=== PATIENT | female | born 1975 | race Caucasian/White ===

== ENCOUNTER 2018-05-25 21:21 | Observation (INO) | payer OTHER ==
[~2018-05-25] VITALS: Ht 167.6 cm; Wt 103.7 kg
--- NOTE | 2018-05-25 21:34 | NUR ---
PT IMMEIDATELY TO ROOM 14. PLACED ON COMPLIANCE TESTING ANALYST. SHOWS SR. COLLINS AT BEDSIDE
[2018-05-25] MEDS ORDERED: METFORMIN500 M1 PO (21:45)
[2018-05-25] MEDS ORDERED: ASPIRIN 81 LOW81 MG PO (21:46)
[2018-05-25] MEDS ORDERED: LOPRESSOR 550 MG/TAB PO (21:46)
[2018-05-25] MEDS ORDERED: AMLODIPINE5 MG PO (21:47)
[2018-05-25] MEDS ORDERED: PRAVASTATIN SOD10 MG PO (21:47)
--- NOTE | 2018-05-25 22:03 | NUR ---
MEDICATED FOR NAUSEA AND CP.
[2018-05-25 22:06] LABS: HEMATOCRIT 41.7 % (37.0-47.0); HEMOGLOBIN 13.9 g/dl (12.0-16.0); IMMATURE GRANULOCYTES 0.4 % (0.0-5.0); MEAN CELL VOLUME 89.3 fL CALC (80.0-100.0); MEAN CORPUSCULAR HGB 29.8 pG CALC (26.0-32.0); MEAN CORPUSCULAR HGB CONC 33.3 g/L CALC (32.0-36.0); NEUT# 7.43 thou/uL (2.00-7.15); RED BLOOD COUNT 4.67 mill/uL (4.20-5.60); RED CELL DISTRI WIDTH 12.3 % (11.5-15.5)
[2018-05-25 22:19] LABS: ALBUMIN 4.8 g/dL (3.2-5.0); ALKALINE PHOSPHATASE 102 u/l (38-126); AMYLASE 38 u/l (30-110); ANION GAP 20 (6-22 (CALC)); BILIRUBIN, TOTAL 0.5 mg/dL (0.0-1.4); BUN 13 mg/dL (7-17); BUN/CREATININE RATIO 20 (12-20 (CALC)); CARBON DIOXIDE 27 mmol/l (22-30); CHLORIDE 101 mmol/l (95-108); CREATININE 0.7 mg/dL (0.5-1.0); GFR > 60 ML/MIN (>=60 (CALC)); GFR FOR AFR.AMER. > 60 ML/MIN (>=60 (CALC)); LIPASE 59 u/l (23-300); POTASSIUM 4.2 mmol/l (3.5-5.1); SGPT/ALT 88 u/l (9-52); SODIUM 143 mmol/l (137-146); TOTAL PROTEIN 8.6 g/dL (6.3-8.2)
[2018-05-25 22:20] LABS: SGOT/AST 134 u/l (14-36)
[2018-05-25 22:30] LABS: MYOGLOBIN 24 ng/mL (0 - 62)
--- NOTE | 2018-05-25 23:07 | NUR ---
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
[2018-05-25 23:20] VITALS: BP 128/78
--- NOTE | 2018-05-26 | NUR ---
PATIENT ADMITTED FROM ER VIA STRETCHER WITH ER STAFF IN ATTENDANCE. PATIENT MIN ASSIST FROM STRETCHER TO STANDING SCALE TO BED. PATIENT DENIES ANY PAIN AT THIS TIME. PATIENT ALERT AND ORIENTEDX3. ALLERGY TO FOX INHIBITORS. HX OF HTN AND NIDDM. STATES THAT SHE STARTED WITH CHEST PRESSURE EARLIER TODAY AND THEN BECAME NAUSEATED LATER TONIGHT. DROVE HERSELF TO THE ER. SSTATES THAT SHE HAS BEEN UNDER ALOT OF STRESS RECENTLY. SALINE LOCK INTACT TO THE RIGHT AC-FLUSHES WELL WITH GOOD BLOOD RETURN. TELE MONITORING DEVICE IN PLACE. STATES THAT SHE HAD BM THURSDAY AND DENIES ANY DIFFICULTY WITH URINATION. LUNGS ARE CLEAR. ABD IS SOFT WITH BS+. SMALL PATCHES OF NON-DRAINING WOUNDS TO BLE-STATES THAT SHE HAS PSORISIS. TEDS APPLIED. PROVIDED WITH DIET GINGERALE. ORIENTED TO ROOM AND SURROUNDINGS. INSTRUCTED ON USE OF NURSE CALL LIGHT SYSTEM AND TV REMOTE. CALL LIGHT IN REACH. WILL CONT TO MONITOR.
--- NOTE | 2018-05-26 04:42 | NUR ---
APPEARS SLEEPING AT THIS TIME POSITIONED ON LEFT SIDE. CALL LIGHT IN REACH. WILL CONT TO MONITOR.
[2018-05-26 05:08] VITALS: BP 122/77
--- NOTE | 2018-05-26 07:05 | NUR ---
PT REPORT RECIEVED FROM DALE HEREDIA. PT RESTING IN BED. PT STATES MINIMAL PAIN TO LOWER CHEST RADIATING TO BACK THAT IS DECREASING. NO S/S OF DISTRESS NOTED. PT UP TO RESTROOM. CALL LIGHT IN REACH. WILL CONTINUE TO MONITOR.
[2018-05-26 08:04] VITALS: BP 141/86
--- NOTE | 2018-05-26 08:04 | NUR ---
PT ASSESSMENT COMPLETE. PT A/O X3. SPEECH IS CLEAR. RESP EVEN AND UNLABORED. LUNG SOUNDS CLEAR. LAST BM 05/25/18. ABD ROUND, SOFT. BOWEL SOUNDS ACTIVE X4. STRONG RADIAL AND PEDAL PULSES. #20 RAC, SITE APPEAR HEALTHY. TELE IN PLACE. PT STATES A HEADACHE 7 OUT OF 10. RELAXTION TECHNIQUES ENFORCED. PLAN OF CARE DISCUSSED. PT STATES UNDERSTANDING. SAFETY PRECAUTIONS IN PLACE. CALL LIGHT IN REACH. WILL CONTINUE TO MONITOR.
--- NOTE | 2018-05-26 09:40 | NUR ---
PT RESTING IN BED. PT STATES HEADACHE IS SUBSIDING. 3 OUT OF 10.
[2018-05-26 09:55] LABS: CHOLESTEROL HDL RATIO 6.4 (<4.4 (CALC))
[2018-05-26 11:15] VITALS: BP 126/81
--- NOTE | 2018-05-26 12:00 | NUR ---
PT SITTING UPRIGHT IN BED WATCHING TELEVISION. NO S/S OF DISTRESS NOTED. PT DENIES ANY CURRENT PAIN OR NEEDS AT THIS TIME. CALL LIGHT IN REACH. WILL CONTINUE TO MONITOR.
--- NOTE | 2018-05-26 13:37 | NUR ---
PT MEDICATED WITH XANAX 0.25MG PO FOR ANXIETY AT THIS TIME,WILL MONITOR FOR EFFECTIVENESS
[2018-05-26 15:48] VITALS: BP 125/79
--- NOTE | 2018-05-26 16:42 | NUR ---
PT SITTING UPRIGHT IN BED WATCHING TELEVISION. NO S/S OF DISTRESS NOTED. NO COMPLAINTS OF CHEST PAIN AT THIS TIME. COMPANY AT BEDSIDE. CALL LIGHT IN REACH. WILL CONTINUE TO MONITOR.
--- NOTE | 2018-05-26 17:31 | NUR ---
PT REPORTS A ACHING HEADACHE 7 OUT OF 10. PT MEDICATED W/ 2 325MG TYLENOL TABS. PT DENIES ANY OTHER NEEDS AT THIS TIME. PASTORA [facility] IN TO TRANSPORT PT TO [place]. FAMILY AT BEDSIDE. WILL CONTINUE TO MONITOR.
--- NOTE | 2018-05-26 18:21 | NUR ---
PT TRANSPORTED BACK TO [place] ACCOMPANIED BY KURT MATTHEWS. PT STATES HEADACHE HAS DECREASED TO A 3 OUT OF 10. FAMILY AT BEDSIDE. CALL LIGHT IN REACH. WILL CONTINUE TO MONITOR.
[2018-05-26 19:00] VITALS: BP 123/85
--- NOTE | 2018-05-26 19:30 | NUR ---
PATIENT SITTING ON THE SIDE OF THE BED WITH FAMILY AT BEDSIDE. ALERT AND ORIENTEDX3 AND ATE WELL FOR SUPPER. NO COMPLAINTS AT THIS TIME. PATIENT WITH TELE MONITOR IN PLACE. SALINE LOCK TO RIGHT AC INTACT AND APPEARS HEALTHY AT THIS TIME. STATES THAT SHE HAD BM TODAY AND DENIES ANY DIFFICULTY WITH URINATION. LUNGS ARE CLEAR. HR- REGULAR. ABD SOFT WITH BS+. NO PEDAL EDEMA NOTED AND PULSES ARE PALPABLE. SAFETY PRECAUTIONS REINFORCED.CALL LIGHT IN REACH. WILL CONT TO MONITOR.
--- NOTE | 2018-05-26 22:30 | NUR ---
PATIENT SITTING ON THE SIDE OF THE BED TALKING WITH FAMILY-HAD SHOWER AND STATES THAT SHE IS FEELING BETTER. LINENS CHANGED. URINE SPEC OBTAINED AND SENT TO LAB. PATIENT MEDICATED WITH XANAX 0.25MG PO TO HELP HER SLEEP. CALL LIGHT IN REACH. WILL CONT TO MONITOR.
[2018-05-27 01:16] LABS: URINE BILIRUBIN - DIPSTICK NEGATIVE (NEGATIVE); URINE BLOOD DIPSTICK LARGE (NEGATIVE); URINE CLARITY CLOUDY; URINE COLOR YELLOW; URINE GLUCOSE - DIPSTICK NEGATIVE (NEGATIVE); URINE KETONE TRACE mg/dL (NEGATIVE); URINE LEUK ESTERASE NEGATIVE (NEGATIVE); URINE NITRITE - DIPSTICK NEGATIVE (Negative); URINE PROTEIN - DIPSTICK NEGATIVE (NEG-TRACE); URINE SPECIFIC GRAVITY 1.025; URINE UROBILINOGEN - DIPSTICK 0.2 E.U./dL (0.2)
[2018-05-27 01:24] LABS: URINE BACTERIA FEW hpf; URINE RBC 25-50 RBC/hpf (0-5); URINE SQUAMOUS EPITHELIAL CELL MANY EPI/hpf (0-FEW)
[2018-05-27 01:25] LABS: URINE MUCUS FEW hpf (NONE-FEW)
--- NOTE | 2018-05-27 02:16 | NUR ---
APPEARS SLEEPING AT THIS TIME POSITIONED ON LEFT SIDE. RESP ARE EVEN AND NON-LABORED. TELE MONITOR IN PLACE. CALL LIGHT IN REACH. WILL CONT TO MONITOR.
[2018-05-27 04:05] VITALS: BP 118/80
--- NOTE | 2018-05-27 05:06 | NUR ---
PATIENT RESTING IN BED AND APPEARS SLEEPING AT THIS TIME. TELE MONITOR IN PLACE. CALL LIGHT IN REACH. WILL CONT TO MONITOR.
--- NOTE | 2018-05-27 07:35 | NUR ---
PT REPORT RECIEVED FROM DALE HEREDIA. PT RESTING IN BED. NO S/S OF DISTRESS NOTED. PT DENIES ANY NEEDS AT THIS TIME. CALL LIGHT IN REACH. WILL CONTINUE TO MONITOR.
[2018-05-27 07:51] VITALS: BP 126/87
--- NOTE | 2018-05-27 07:51 | NUR ---
PT ASSESSMENT COMPLETE. PT A/O X3. SPEECH IS CLEAR. RESP EVEN AND UNLABORED. LUNG SOUNDS CLEAR. TELE IN PLACE. NO COMPLAINTS OF CHEST PAIN. ABD ROUND AND SOFT. BOWEL SOUNDS ACTIVE X4. STRONG RADIAL AND PEDAL PULSES. #20 RAC SL. SITE APPEARS HEALTHY. PLAN OF CARE DISCUSSED. PT STATES UNDERSTANDING. PT DENIES ANY FURTHER NEEDS AT THIS TIME. SAFETY PRECAUTIONS IN PLACE. CALL LIGHT IN REACH. WILL CONTINUE TO MONITOR.
[2018-05-27 11:09] LABS: HEMATOCRIT 39.7 % (37.0-47.0); HEMOGLOBIN 13.5 g/dl (12.0-16.0); MEAN CORPUSCULAR HGB 30.6 pG CALC (26.0-32.0); RED BLOOD COUNT 4.41 mill/uL (4.20-5.60); RED CELL DISTRI WIDTH 12.1 % (11.5-15.5)
--- NOTE | 2018-05-27 11:20 | NUR ---
DUY NAGEL IN TO SEE PT.
[2018-05-27 11:57] VITALS: BP 122/80
--- NOTE | 2018-05-27 12:00 | NUR ---
PT SITTING UPRIGHT IN BED. NO S/S OF DISTRESS NOTED. PT DENIES ANY PAIN OR NEEDS AT THIS TIME. AT BESIDE. CALL LIGHT IN REACH. WILL CONTINUE TO MONITOR.
[2018-05-27 12:15] LABS: ANION GAP 17 (6-22 (CALC)); BUN 14 mg/dL (7-17); BUN/CREATININE RATIO 23 (12-20 (CALC)); CARBON DIOXIDE 28 mmol/l (22-30); CHLORIDE 100 mmol/l (95-108); CREATININE 0.6 mg/dL (0.5-1.0); GFR > 60 ML/MIN (>=60 (CALC)); GFR FOR AFR.AMER. > 60 ML/MIN (>=60 (CALC)); MAGNESIUM 1.9 mg/dL (1.6-2.3); POTASSIUM 4.2 mmol/l (3.5-5.1); SODIUM 140 mmol/l (137-146)
[2018-05-27] MEDS ORDERED: LOPRESSOR 550 MG/TAB PO (14:17)
[2018-05-27] MEDS ORDERED: ATORVASTATIN CA40 MG PO (14:17)
--- NOTE | 2018-05-27 14:45 | NUR ---
D/C INSTRUCTIONS, NEW MEDS, AND RESCHEDULE OF STRESS TEST DISCUSSED W/ PT AND . BOTH VERBALIZE UNDERSTANDING. VOLUNTEER WAITING FOR PT TO TRANSPORT OFF OF UNIT.
--- NOTE | 2018-05-27 14:58 | NUR ---
Discharge instructions given. Patient verbalizes understanding of same. Discharged in condition via Wheelchair to Home with spouse. All belongings sent with pt.
== END 2018-05-27 15:00 | disposition home or self-care (01) | DRG 313 ==
LOC: ED 21:21 → ED-I 22:00 → ED 22:00 → ED-I 22:25 → ED 22:45 → MS2 22:46
PROVIDERS: Emergency Medicine; Nurse Practitioner Family; ADMIT Internal Medicine; ATTEND Internal Medicine
DX: R07.2 Precordial pain (principal); E11.9 Type 2 diabetes mellitus without complications; I10 Essential (primary) hypertension; E78.5 Hyperlipidemia, unspecified; E66.01 Morbid (severe) obesity due to excess calories; F41.9 Anxiety disorder, unspecified; Z68.36 Body mass index [BMI] 36.0-36.9, adult; Z63.79 Other stressful life events affecting family and household; Z82.49 Family history of ischemic heart disease and other diseases of the circulatory system; Z79.84 Long term (current) use of oral hypoglycemic drugs
CPT/HCPCS: G0378; J2060

== ENCOUNTER → 2018-11-13 | Outpatient (REF) | payer OTHER ==
[~2018-11-13] MED LIST: AMLODIPINE5 MG PO; ASPIRIN 81 LOW81 MG PO; ATORVASTATIN CA40 MG PO; LOPRESSOR 550 MG/TAB PO; METFORMIN500 M1 PO; PRAVASTATIN SOD10 MG PO
[2018-11-13 11:44] LABS: HEMATOCRIT 37.8 % (37.0-47.0); HEMOGLOBIN 12.4 g/dl (12.0-16.0); IMMATURE GRANULOCYTES 0.6 % (0.0-5.0); MEAN CELL VOLUME 90.4 fL CALC (80.0-100.0); MEAN CORPUSCULAR HGB 29.7 pG CALC (26.0-32.0); MEAN CORPUSCULAR HGB CONC 32.8 g/L CALC (32.0-36.0); NEUT# 6.13 thou/uL (2.00-7.15); RED BLOOD COUNT 4.18 mill/uL (4.20-5.60); RED CELL DISTRI WIDTH 12.8 % (11.5-15.5)
[2018-11-13 12:02] LABS: ALBUMIN 4.4 g/dL (3.2-5.0); ALKALINE PHOSPHATASE 86 u/l (38-126); ANION GAP 18 (6-22 (CALC)); BILIRUBIN, TOTAL 0.5 mg/dL (0.0-1.4); BUN 11 mg/dL (7-17); BUN/CREATININE RATIO 20 (12-20 (CALC)); CARBON DIOXIDE 25 mmol/l (22-30); CHLORIDE 102 mmol/l (95-108); CREATININE 0.5 mg/dL (0.5-1.0); GFR > 60 ML/MIN (>=60 (CALC)); GFR FOR AFR.AMER. > 60 ML/MIN (>=60 (CALC)); SGOT/AST 95 u/l (14-36); SODIUM 141 mmol/l (137-146); TOTAL PROTEIN 7.3 g/dL (6.3-8.2)
[2018-11-13 12:30] LABS: TSH, 3RD GENERATION 1.68 uIU/mL (0.47 - 4.68)
== END | disposition home or self-care (01) | DRG 305 ==
LOC: LAB 11:02
PROVIDERS: ATTEND Family Medicine
DX: I10 Essential (primary) hypertension (principal); E78.5 Hyperlipidemia, unspecified; R73.09 Other abnormal glucose; E55.9 Vitamin D deficiency, unspecified; E11.8 Type 2 diabetes mellitus with unspecified complications

== ENCOUNTER → 2018-11-13 | Outpatient (REF) ==
[2018-11-13 12:06] LABS: CHOLESTEROL HDL RATIO 3.8 (<4.4 (CALC))
== END | disposition home or self-care (01) | DRG 951 ==
LOC: LAB 10:56
PROVIDERS: ATTEND Family Medicine
DX: Z02.6 Encounter for examination for insurance purposes (principal)

== ENCOUNTER → 2018-11-17 | Outpatient (REF) | payer OTHER | END | disposition home or self-care (01) | DRG 311 | LOC: NUCMED 07:30 → STRESS 07:37 | PROVIDERS: ATTEND Internal Medicine | DX: I20.9 Angina pectoris, unspecified (principal) | CPT/HCPCS: A9502 ==

== ENCOUNTER 2019-09-30 | Emergency (ER) | payer OTHER | END 2019-09-30 17:00 | disposition home or self-care (01) | DRG 951 | DX: Z20.89 Contact with and (suspected) exposure to other communicable diseases (principal) ==

== ENCOUNTER 2021-07-04 17:57 | Emergency (ER) | payer OTHER ==
[~2021-07-04] VITALS: Ht 167.6 cm; Wt 89.5 kg
[2021-07-04 18:50] LABS: URINE BILIRUBIN - DIPSTICK NEGATIVE (NEGATIVE); URINE BLOOD DIPSTICK NEGATIVE (NEGATIVE); URINE COLOR YELLOW; URINE GLUCOSE - DIPSTICK NEGATIVE (NEGATIVE); URINE KETONE NEGATIVE (NEGATIVE); URINE LEUK ESTERASE NEGATIVE (NEGATIVE); URINE PROTEIN - DIPSTICK NEGATIVE (NEG-TRACE); URINE SPECIFIC GRAVITY >=1.030; URINE UROBILINOGEN - DIPSTICK 0.2 E.U./dL (0.2)
[2021-07-04 18:50] LABS: HEMATOCRIT 38.8 % (37.0-47.0); HEMOGLOBIN 12.7 g/dl (12.0-16.0); IMMATURE GRANULOCYTES 0.2 % (0.0-5.0); MEAN CORPUSCULAR HGB 29.5 pG CALC (26.0-32.0); MEAN CORPUSCULAR HGB CONC 32.7 g/dL CAL (32.0-36.0); NEUT# 5.92 thou/uL (2.00-7.15); RED BLOOD COUNT 4.31 mill/uL (4.20-5.60); RED CELL DISTRI WIDTH 12.7 % (11.5-15.5)
[2021-07-04 18:51] LABS: URINE NITRITE - DIPSTICK NEGATIVE (Negative)
[2021-07-04 18:52] VITALS: BP 139/69
[2021-07-04 19:06] LABS: ALBUMIN 4.3 g/dL (3.2-5.0); ALKALINE PHOSPHATASE 65 u/l (38-126); AMYLASE 57 u/l (30-110); ANION GAP 8 (6-22 (CALC)); BILIRUBIN, TOTAL 0.5 mg/dL (0.0-1.4); BUN 23 mg/dL (7-17); BUN/CREATININE RATIO 34 (12-20 (CALC)); CARBON DIOXIDE 26 mmol/l (22-30); CHLORIDE 103 mmol/l (95-108); CREATININE 0.7 mg/dL (0.5-1.0); GFR > 60 ML/MIN (>=60 (CALC)); GFR FOR AFR.AMER. > 60 ML/MIN (>=60 (CALC)); LIPASE 40 u/l (23-300); POTASSIUM 3.7 mmol/l (3.5-5.1); SGOT/AST 24 u/l (14-36); SODIUM 134 mmol/l (137-146); TOTAL PROTEIN 7.6 g/dL (6.3-8.2)
[2021-07-04 19:10] LABS: ACT PARTIAL THROMBO TIME 26.3 SECONDS (20.0-32.5); PROTHROMBIN TIME 10.3 SECONDS (9.0-12.5)
[2021-07-04] MEDS ORDERED: MECLIZINE25 MG PO (20:09)
[2021-07-04] MEDS ORDERED: ZOFRAN4 MG/TAB PO (20:09)
== END 2021-07-04 20:30 | disposition home or self-care (01) | DRG 149 ==
LOC: ED 17:57
DX: R42 Dizziness and giddiness (principal); I10 Essential (primary) hypertension; E11.9 Type 2 diabetes mellitus without complications; Z79.84 Long term (current) use of oral hypoglycemic drugs; Z20.822 Contact with and (suspected) exposure to COVID-19

== ENCOUNTER 2022-06-01 23:46 | Emergency (ER) | payer OTHER ==
[~2022-06-01 23:46] MED LIST changes: +ASPIRIN ADULT L81 M2 PO; +ATORVASTATIN CA20 MG PO; +LEXAPRO10 MG PO; +MECLIZINE25 MG PO; +METFORMIN500 M2 PO; +NORVASC10 M1 PO; +OTEZLA 10 & 201 TAB PO; +OZEMPIC2 MG/1.5 M SC; +OZEMPIC4 MG SC; +TENORMIN25 MG PO; +ZOFRAN4 MG/TAB PO
== END 2022-06-02 00:46 | disposition left against medical advice (07) | DRG 951 ==
LOC: ED 23:46 → LWOBS 06-02 00:46
DX: Z53.21 Procedure and treatment not carried out due to patient leaving prior to being seen by health care provider (principal)